=== PATIENT | male | born 1940 | race Asian ===

== ENCOUNTER 2022-12-06 16:08 | Outpatient (REF) | payer MEDICARE, SELFPAY ==
[2022-12-06 18:44] LABS: Folate 8.2 ng/mL (> or = 4.0); Vitamin B12 396 pg/mL (200-900)
== END 2022-12-06 16:09 | disposition home or self-care (01) ==
LOC: HO.CHCLDS 16:08
PROVIDERS: Visit Provider Internal Medicine
DX: D75.89 Other specified diseases of blood and blood-forming organs (principal)
CPT/HCPCS: 36415; 82607; 82746

== ENCOUNTER 2023-06-16 16:20 | Outpatient (REF) | payer MEDICARE, SELFPAY ==
[2023-06-16 17:29] LABS: Alanine Aminotransferase 14 U/L (0-40); Albumin Level 4.4 g/dL (3.5-5.0); Alkaline Phosphatase 78 U/L (39-117); Anion Gap 15 (12-20); Aspartate Amino Transferase 24 U/L (5-37); Bilirubin Total 0.3 mg/dL (0.0-1.0); Blood Urea Nitrogen 18 mg/dL (9-16); Calcium 10.3 mg/dL (8.4-10.2); Carbon Dioxide 27 mmol/L (22-29); Chloride 103 mmol/L (96-108); Estimated Glomerular Filt Rate > 60; Glucose Random 124 mg/dL (60-115); Potassium 4.1 mmol/L (3.3-5.1); Sodium 141 mmol/L (135-145); Total Protein 7.8 g/dL (6.5-8.0)
[2023-06-16 18:01] LABS: Creatinine Urine 126.98 mg/dL; Microalbum/Creatinine Ratio Ur 263.8 ug/mg cr (<30)
== END 2023-06-16 16:21 | disposition home or self-care (01) ==
LOC: HO.CHCLDS 16:20
PROVIDERS: Visit Provider Internal Medicine
DX: E11.9 Type 2 diabetes mellitus without complications (principal)
CPT/HCPCS: 36415; 80053; 82043; 82570

== ENCOUNTER 2024-07-20 08:42 | Outpatient (REF) | payer MEDICARE, SELFPAY ==
--- OUTSIDE RECORDS SUMMARY | 2024-07-20 08:57 | XMS_ITS | Encounter Summary ---
Author Organization [employer] Address [address] [place] [address] [address] [place] [address] Care Team Providers Care Deck Hand Name Role Phone Shadi Mcgovern MD Primary Care Provider Encounter Details Date Type Department Care Team ([facility] st Contact Info) Description 08/04/2022 Orders Only [facility] MED & PEDS [address] [place] [address] Shirley Richardson LPN Social History Tobacco Use Types Packs/Day Years Used Date Smoking Tobacco: Every Day Cigarettes Smokeless Tobacco: Never Alcohol Use Standard Drinks/Week Comments Yes 1 (1 standard drink = 0.6 oz pur e alcohol) Sex and Gender Information Value Date Recorded Sex Assigned at Male 12/14/2021 10:21 AM EDT Legal Sex Male 10:21 AM EDT Gender Identity Male 12/14/2021 10:21 AM EDT Sexual Orientation Straight 12/14/2021 10 :21 AM EDT documented as of this encounter Plan of Treatment Not on file documented as of this encounter Visit Diagnoses Not on filedocumented in this encounter Care Teams Deck Hand Relationship Specialty Start Date End Date Shadi Mcgovern MD [address] [place] [address] PCP - General Internal Medicine 02/14/18 documented as of this encounter
[2024-07-20 14:22] LABS: Estimated Average Glucose 143 mg/dL; Hemoglobin A1c % 6.6 % (<6.0)
[2024-07-20 14:51] LABS: TSH reflex Free T4 1.04 uIU/mL (0.32-4.0)
[2024-07-20 15:09] LABS: Creatinine Urine 62.24 mg/dL; Microalbum/Creatinine Ratio Ur 138.1 ug/mg cr (<30)
[2024-07-20 15:10] LABS: Anion Gap 9 (12-20)
[2024-07-20 15:14] LABS: Alanine Aminotransferase 16 U/L (0-40); Albumin Level 4.3 g/dL (3.5-5.0); Alkaline Phosphatase 78 U/L (39-117); Aspartate Amino Transferase 30 U/L (5-37); Bilirubin Total 0.5 mg/dL (0.0-1.0); Blood Urea Nitrogen 16 mg/dL (9-16); Calcium 9.7 mg/dL (8.4-10.2); Carbon Dioxide 30 mmol/L (22-29); Chloride 107 mmol/L (96-108); Cholesterol 116 mg/dL (<200); Estimated Glomerular Filt Rate > 60; Glucose Random 123 mg/dL (60-115); HDL Cholesterol 51 mg/dL (>40); LDL Cholesterol Calculated 50 mg/dL (<100); Potassium 4.3 mmol/L (3.3-5.1); Sodium 142 mmol/L (135-145); Total Protein 7.4 g/dL (6.5-8.0); Triglycerides 78 mg/dL (<150)
== END 2024-07-20 08:43 | disposition home or self-care (01) ==
LOC: HO.CHCLDS 08:42
PROVIDERS: Visit Provider Internal Medicine
DX: E11.9 Type 2 diabetes mellitus without complications (principal); E78.00 Pure hypercholesterolemia, unspecified
CPT/HCPCS: 36415; 80053; 80061; 82043; 82570; 83036; 84443

== ENCOUNTER 2024-11-06 11:21 | Outpatient (REF) | payer OTHER, SELFPAY ==
--- OUTSIDE RECORDS SUMMARY | 2024-11-06 10:45 | XMS_ITS | Encounter Summary ---
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 I have evelin moore 06/20/[address] you li ve. Do you have problems with any of the following? None of the above 06/20/2024 Food Insecurity Answer Date Recorded Within the past 12 months, y ou worried that your food would run out before you got money to buy more: Never True 06/20/2024 Within the past 12 months,th e food you bought just didn't last and you didn't have enough money to get more: Never True 08/2024 Transportation Answer Date Recorded In the past 12 months, has l ack of transportation kept you from medical appts, meetings, work or from getting things needed for daily living? No 06/20/2024 Utilities Answer Date Recorded In the past 12 months, has t he electric, gas, oil or water company threatened to shut off services in your home? No 06/20/2024 Depression Answer Date Recorded Patient Health Questionnaire-2 Score 0 06/20/2024 Internet Access Answer Date Recorded Internet Access Q1 Yes 06/20/2024 Internet Access Q2 Not on file 06/20/2024 Sex and Gender Information Value Date Recorded Sex Assigned at Male 12/14/2021 10:21 AM EDT Legal Sex Male 10:21 AM EDT Gender Identity Male 12/14/2021 10:21 AM EDT Sexual Orientation Straight 12/14/2021 10 :21 AM EDT documented as of this encounter Last Filed Vital Signs Vital Sign Reading Time Taken Comments Blood Pressure 112/67 11/06/2024 10:36 AM EDT Pulse 71 11/06/2024 10:36 AM EDT Temperature - - Respiratory Rate 20 11/06/2024 10:36 AM EDT Oxygen Saturation 98% 11/06/2024 10:36 AM EDT Inhaled Oxygen Concentration - - Weight 49 kg (108 lb) 11/06/2024 10:36 AM EDT Height 154.9 cm (5' 1 ) 11/06/2024 10:36 AM EDT Body Mass Index 20.41 11/06/2024 10:36 AM EDT documented in this encounter Progress Notes * Shadi Mcgovern MD - 11/06/2024 10:45 AM EDT SIMONA Goodwin Do is a 84 y.o. male who presents for No chief complaint on file.. HPI Mr. Katherine Goodwin Do Was admitted at [facility] on October 26, 2024 with shortness of breathof 3 days duration. As the shortness of breath was getting worse Decided to call her children and was transported by ambulance to the hospital. Chest x-ray: Diffuse prominent interstitial markings may reflect early atypical/viral pneumonia versus mild pulmonary edema. Started on on CPAP subsequently changed to high flow oxygen given the fact that patient did not tolerate the CPAP. Labs: Hemoglobin 11.6, MCV 94.6, platelet 149. Normal anion gap metabolic acidosis. Normal creatinine. Troponin 47 and 54. proBNP 9300. COVID, influenza, RSV negative. EKG: Normal sinus rhythm with frequent PVC, heart rate 93, QTc 437, possible septal infarct. Started on IV Lasix 20 mg, placed on BiPAP. Transthoracic echocardiogram: Left ventricular severely dilated in size. Left ventricular wall thickness was normal. There was severe hypokinesis of the left ventricle with regional variation. Left ventricular systolic function is 14.2% by biplane Kirby grade 2 diastolic dysfunction with high left atrial filling pressures. The leaflets appears moderately thickened and calcified. There was moderate aortic stenosis by aortic valve area. Right ventricular cavity was normal in size. Right ventricular systolic function was low normal. Discharge medication: Aspirin 81 mg once daily Lasix 20 mg once daily Nicotine patch 7 mg per 24 hours 1 patch daily Spironolactone 25 mg once daily Valsartan 40 mg once daily. Patient states that he is feeling better. Denies shortness of breath at rest and with his activities of daily living. He has decided to quit smoking. He has a scheduled follow-up appointment with his tree deadener at the beginning of November in about2 weeks. Problem List[1] Allergies[2] Medications Ordered Prior to Encounter[3] Review of Systems Constitutional: Negative for appetite change, chills, diaphoresis and fatigue. HENT: Negative for dental problem, drooling and ear discharge. Respiratory: Negative for cough, choking and shortness of breath. Cardiovascular: Negative for leg swelling. Gastrointestinal: Negative for anal bleeding and blood in stool. Musculoskeletal: Negative for back pain, gait problem and joint swelling. OBJECTIVE Vitals: 11/06/24 1036 BP: 112/67 BP Location: Left arm Patient Position: Sitting BP Cuff Size: Adult Pulse: 71 Resp: 20 SpO2: 98% Weight: 108 lb (49 kg) Height: 5' 1 (1.549 m) Physical Exam Constitutional: General: He is not in acute distress. Appearance: Normal appearance. He is not ill-appearing, toxic-appearing or diaphoretic. Cardiovascular: Rate and Rhythm: Normal rate. Heart sounds: No murmur heard. Pulmonary: Effort: Pulmonary effort is normal. No respiratory distress. Breath sounds: No stridor. No wheezing or rhonchi. Neurological: General: No focal deficit present. Mental Status: He is alert. Assessment/Plan Assessment/Plan Diagnoses and all orders for this visit: Acute combined systolic and diastolic congestive heart failure ([facility]/HCC) Comments: Stable Patient aware to check his weight daily. To contact the office if he gains more than 3 pounds in a day or more than 5 pounds in a week Cardiology evaluation scheduled Fluid restriction: 1.5 L of fluid a day Complete abstinence from alcohol use for now. Orders: - Basic Metabolic Panel; Future - Lasix 20 MG tablet; Take 1 tablet (20 mg) by mouth Once per day. - valsartan (Diovan) 40 MG tablet; Take 1 tablet (40 mg) by mouth Once per day. - aspirin 81 MG EC tablet; Take 1 tablet (81 mg) by mouth Once per day. - Aldactone 25 MG tablet; Take 1 tablet (25 mg) by mouth Once per day. Smoking addiction Comments: Nicotine patch prescribed. Orders: - nicotine (Nicoderm CQ) 7 MG/24HR patch; Place 1 patch on the skin 1 (one) time each day at the same time. Type 2 diabetes mellitus without complication, without long-term current use of insulin ([facility]) Comments: Stable. A1c is at goal No change. Orders: - POCT Glucose - POCT Hgb A1c [1] Patient Active Problem List Diagnosis Hypercholesterolemia Osteoarthritis Pulmonary emphysema ([facility]) Type 2 diabetes mellitus ([facility]) Smoking addiction [2] No Known Allergies [3] Current Outpatient Medications on File Prior to Visit Medication Sig Dispense Refill acetaminophen (Tylenol 8 Hour) 650 MG ER tablet TAKE 1 TABLET EVERY 8 HOURS NEEDED FOR PAIN 90 tablet 5 alendronate (Fosamax) 70 MG tablet TAKE 1 TABLET BY MOUTH ONCE A WEEK ON AN EMPTY STOMACH WITH A FULL GLASS OF WATER. REMAIN UPRIGHT FOR AT LEAST 30 MINUTES. 4 tablet 3 ammonium lactate (Amlactin) 12 % cream APPLY TO THE AFFECTED AREA ON SKIN two (2) times a day 140 g11 Blood Glucose Monitoring Suppl (Reflex [place] Lite) w/Device kit Use to test blood sugar 2 times daily 1 kit 0 cetirizine (ZyrTEC) 10 MG tablet TAKE 1 TABLET ONCE DAILY 30 tablet 11 chlorhexidine (Peridex) 0.12 % solution SWISH 1 capful (15MLS) FOR 30 SECONDS THEN SPIT OUT. USE two (2) times a day AFTER MEALS 473 mL 3 D3-1000 25 MCG (1000 UT) capsule TAKE 1 CAPSULE ONCE DAILY 30 capsule 11 famotidine (Pepcid) 20 MG tablet TAKE 1 TABLET ONCE DAILY AT BEDTIME 30 tablet 3 fluticasone (Flonase) 50 MCG/ACT nasal spray SPRAY 1 PUFF IN EACH NOSTRIL ONCE DAILY 16 g 5 FREESTYLE LITE test strip USE TO TEST FINGER STICK BLOOD SUGAR two (2) times a day 100 strip 11 metFORMIN (Glucophage) 500 MG tablet TAKE 1 TABLET two (2) times a day WITH BREAKFAST AND DINNER 60tablet 11 Multiple Vitamin (One-Daily Multi-Vitamin) tablet TAKE 1 TABLET ONCE DAILY 30 tablet 3 omega-3 (Fish Oil) 1000 MG capsule 1 cap 2 x day rosuvastatin (Crestor) 20 MG tablet TAKE 1 TABLET ONCE DAILY 30 tablet 11 True Comfort Safety Lancets misc USE TO TEST FINGER STICK BLOOD SUGAR two (2) times a day 100 each 11 [DISCONTINUED] Aldactone 25 MG tablet Take 1 tablet by mouth Once per day. [DISCONTINUED] aspirin 81 MG EC tablet Take 81 mg by mouth Once per day. [DISCONTINUED] glucose blood (FREESTYLE LITE) test strip USE TO TEST FINGER STICK BLOOD SUGAR two (2) times a day 60 strip 5 [DISCONTINUED] Lasix 20 MG tablet Take 1 tablet by mouth Once per day. [DISCONTINUED] nicotine (Nicoderm, Step 3) 7 MG/24HR patch Apply 1 patch topically Once per day. [DISCONTINUED] valsartan (Diovan) 40 MG tablet Take 1 tablet by mouth Once per day. No current facility-administered medications on file prior to visit. documented in this encounter Plan of Treatment Scheduled Orders Name Type Priority Associated Diagnoses Orde r Schedule Basic Metabolic Panel Lab Routine Acute combined systolic and diastolic congestive heart failure (CMS/HCC) Expected: 11/06/2024 (Approximate), Expires: 11/06/2025 CBC auto differential Lab Routine Acute combined systolic and diastolic congestive heart failure (CMS/HCC) Expected: 11/06/2024 (Approximate), Expires: 11/06/2025 documented as of this encounter Procedures Procedure Name Priority Date/Time Associated Diagnosis Comments POCT GLYCATED HEMOGLOBIN, TOTAL Routine 11/06/2024 11:07 AM EDT Type 2 diabetes mellitus without complication, without long-term current use of insulin ([facility]) POCT GLUCOSE Routine 11/06/2024 11:07 AM EDT Type 2 diabetes mellitus without complication, without long-term current use of insulin ([facility]) documented in this encounter Results * (ABNORMAL) POCT Hgb A1c (11/06/2024 11:07 AM EDT) Hemoglobin A1C 6.5(A) 4.0 - 5.7 % QC Media Lot # [id number] Lot# Expiration Date Blood 11/06/2024 11:0 7 AM EDT Shadi Mcgovern MD POINT OF CARE TEST ENTER/ED IT ORDERABLES Final Result * POCT Glucose (11/06/2024 11:07 AM EDT) Glucose Blood, POC 164 60 - 200 mg/dL QC Media Lot # [id number] Lot# Expiration Date Comment:random Blood Capillary blood specimen / Unknown 11/06/2024 11:07 AM EDT Shadi Mcgovern MD POINT OF CARE TEST ENTER/ED IT ORDERABLES Final Result documented in this encounter Visit Diagnoses Diagnosis Acute combined systolic and diastolic congestive heart failure ([facility]/HCC)- Primary Smoking addiction Type 2 diabetes mellitus without complication, without long-term current use of insulin ([facility]) documented in this encounter Additional Health Concerns Assessment Noted Time PHQ-9 Depression Total Score: 0 06/21/19 25 4:30 PM EDT documented as of this encounter Care Teams Ice Scraper Relationship Specialty Start Date End Date Shadi Mcgovern MD [address] [place] [id number] PCP - General Internal Medicine 02/14/18 documented as of this encounter
--- OUTSIDE RECORDS SUMMARY | 2024-11-06 14:13 | XMS_ITS | Encounter Summary ---
Author Organization [employer] Address [address] [place] [address] [address] [place] [address] Care Team Providers Care Associate Quality Engineer Name Role Phone Shadi Mcgovern MD Primary Care Provider Encounter Details Date Type Department Care Team ([facility] st Contact Info) Description 08/04/2022 Orders Only [facility] MED & PEDS [address] [place] [address] Shirley Richardson LPN Social History Tobacco Use [...] on filedocumented in this encounter Care Teams Associate Quality Engineer Relationship Specialty Start Date End Date Shadi Mcgovern MD [address] [place] [address] PCP - General Internal Medicine 02/14/18 documented as of this encounter
--- OUTSIDE RECORDS SUMMARY | 2024-11-06 14:13 | XMS_ITS | Encounter Summary ---
Author Organization [employer] Address [address] [facility] [address] [place] [address] Care Team Providers Care Aviation Warfare Systems Operator Name Role Phone Shadi Mcgovern MD Primary Care Provider [phone] Encounter Details Date Type Department Care Team (Late st Contact Info) Description 03/30/2022 Orders Only [facility] MEDICINE [address] [place] [address] Maria Esther Kahn LPN Social History Tobacco Use Types Packs/Day Years Used Date Smoking Tobacco: Never Assessed Sex and Gender Information Value Date Recorded Sex Assigned at Male 12/14/2021 10:21 AM EDT Legal Sex Male 10:21 AM EDT Gender Identity Male 12/14/2021 10:21 AM EDT Sexual Orientation Straight 12/14/2021 10 :21 AM EDT documented as of this encounter Plan of Treatment Not on file documented as of this encounter Visit Diagnoses Not on filedocumented in this encounter Care Teams Aviation Warfare Systems Operator Relationship Specialty Start Date End Date Shadi Mcgovern MD [address] [place] [address] PCP - General Internal Medicine 02/14/18 documented as of this encounter
--- OUTSIDE RECORDS SUMMARY | 2024-11-06 14:13 | XMS_ITS | Clinical Summary ---
Author Organization [employer] Address [address] [facility] 7t [place] [address] Care Team Providers Care Manager Review Name Role Phone Shadi Mcgovern MD Primary Care Provider [phone] Allergies No known active allergies Medications omega-3 (Fish Oil) 1000 MG capsule 1 cap 2 x day 12/26/19 19 Active Blood Glucose Monitoring Suppl (FreeStyle [place] Lite) w/Device kitIndications:Ty pe 2 diabetes mellitus without complication, without long-term current use of insulin ([facility]) Use to test blood sugar 2 times daily 1 kit 08/15/19 24 Active rosuvastatin (Crestor) 20 MG tablet TAKE 1 TABLET ONCE DAILY 30 tablet 10/31/19 24 Active D3-1000 25 MCG (1000 UT) capsule TAKE 1 CAPSULE ONCE DAILY 30 capsule 11/30/19 24 Active cetirizine (ZyrTEC) 10 MG tabletIndications :Seasonal allergies TAKE 1 TABLET ONCE DAILY 30 tablet 11/30/19 24 Active fluticasone (Flonase) 50 MCG/ACT nasal sprayIndications: Seasonal allergies SPRAY 1 PUFF IN EACH NOSTRIL ONCE DAILY 16 g 5 12/06/19 24 Active True Comfort Safety Lancets miscIndications:D iabetes mellitus due to underlying condition without complications ([facility]) USE TO TEST FINGER STICK BLOOD SUGAR two (2) times a day 100 each 11 03/30/19 25 Active ammonium lactate (Amlactin) 12 % creamIndications: Dry skin APPLY TO THE AFFECTED AREA ON SKIN two (2) times a day 140 g 11 05/09/19 25 Active FREESTYLE LITE test stripIndications: Dry skin USE TO TEST FINGER STICK BLOOD SUGAR two (2) times a day 100 strip 11 06/19/19 25 Active Multiple Vitamin (One-Daily Multi-Vitamin) tabletIndications :Vitamin deficiency TAKE 1 TABLET ONCE DAILY 30 tablet 3 06/20/19 25 Active famotidine (Pepcid) 20 MG tabletIndications :Gastroesophageal reflux disease without esophagitis TAKE 1 TABLET ONCE DAILY AT BEDTIME 30 tablet 3 06/20/19 25 Active acetaminophen (Tylenol 8 Hour) 650 MG ER tabletIndications :Primary osteoarthritis involving multiple joints TAKE 1 TABLET EVERY 8 HOURS NEEDED FOR PAIN 90 tablet 5 07/17/19 25 Active chlorhexidine (Peridex) 0.12 % solutionIndicatio ns:Routine general medical examination at a health care facility SWISH 1 capful (15MLS) FOR 30 SECONDS THEN SPIT OUT. USE two (2) times a day AFTER MEALS 473 mL 07/17/19 25 Active metFORMIN (Glucophage) 500 MG tabletIndications :Type 2 diabetes mellitus without complication, without long-term current use of insulin (CMS/HCC) TAKE 1 TABLET two (2) times a day WITH BREAKFAST AND DINNER 60 tablet 08/07/19 25 Active alendronate (Fosamax) 70 MG tabletIndications :Osteoporosis of multiple sites TAKE 1 TABLET BY MOUTH ONCE A WEEK ON AN EMPTY STOMACH WITH A FULL GLASS OF WATER. REMAIN UPRIGHT FOR AT LEAST 30 MINUTES. 4 tablet 3 10/18/19 25 Active nicotine (Nicoderm CQ) 7 MG/24HR patchIndications: Smoking addiction Place 1 patch on the skin 1 (one) time each day at the same time. 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 30 tablet 3 11/07/19 25 2024 Active glucose blood (FREESTYLE LITE) test stripIndications: Type 2 diabetes mellitus without complication, without long-term current use of insulin (CMS/HCC) USE TO TEST FINGER STICK BLOOD SUGAR two (2) times a day 60 strip 5 05/28/192024 Discontinued(D uplicate order (will not trigger notification to Pharmacy)) alendronate (Fosamax) 70 MG tabletIndications :Osteoporosis of multiple sites TAKE 1 TABLET BY MOUTH ONCE A WEEK ON AN EMPTY STOMACH WITH A FULL GLASS OF WATER. REMAIN UPRIGHT FOR AT LEAST 30 MINUTES. 4 tablet 3 06/19/192024 Discontinued aspirin 81 MG EC tablet Take 81 mg by mouth Once per day. 10/28/19 25 2024 Discontinued(R eorder (will not trigger notification to Pharmacy)) Lasix 20 MG tablet Take 1 tablet by mouth Once per day. 10/28/19 25 2024 Discontinued(R eorder (will not trigger notification to Pharmacy)) nicotine (Nicoderm, Step 3) 7 MG/24HR patch Apply 1 patch topically Once per day. 10/28/19 25 2024 Discontinued Aldactone 25 MG tablet Take 1 tablet by mouth Once per day. 10/28/19 25 2024 Discontinued(R eorder (will not trigger notification to Pharmacy)) valsartan (Diovan) 40 MG tablet Take 1 tablet by mouth Once per day. 10/28/19 25 2024 Discontinued(R eorder (will not trigger notification to Pharmacy)) nicotine (Nicoderm CQ) 21 MG/24HR patchIndications: Smoking addiction Place 1 patch on the skin 1 (one) time each day at the same time. 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) (Primary Dx); Smoking addiction; Type 2 diabetes mellitus without complication, without long-term current use of insulin (CMS/HCC) 11/06/2024 Travel 10/29/2024 Telephone [facility] [address] [place] [address] Shadi Mcgovern MD ER Follow-up 10/26/2024 Telephone [facility] [address] [place] [address] Shadi Mcgovern MD recall appt 10/16/2024 Refill [facility] [address] [place] [address] Shadi Mcgovern MD Osteoporosis of multiple sites 08/06/2024 Refill [facility] [address] [place], [place] [phone] Shadi Mcgovern MD Type 2 diabetes mellitus without complication, without long-term current use of insulin ([facility]) from Last 3 Months Immunizations Immunization Administration Dates Next Due Influenza High-dose Quadrivalent Preservative Fr ee 12/01/2021,12/13/2020 Influenza Quadrivalent Adjuvanted 12/25/2022 Influenza injectable quadriv alent IIV4 with preservative 11/10/2017,02/04/2017 Influenza injectable quadrivalent preservative f ree 12/29/2014 Influenza, High Dose Seasonal, Preservative Free 11/29/2023 Influenza, IIV3, injectable 11/28/2013 Pneumococcal Conjugate PCV 13 11/10/2017 Pneumococcal Conjugate PCV 20 06/16/2023 Tdap 06/16/2023 Zoster, live 11/28/2013 Social History Tobacco Use Types Packs/Day Years Used Date Smoking Tobacco: Every Day Cigarettes Smokeless Tobacco: Never Tobacco Cessation:Ready to Q uit: No; Counseling Given: Yes Alcohol Use Standard Drinks/Week Comments Yes 1 [...] Orientation Straight 12/14/2021 10 :21 AM EDT Last Filed Vital Signs Vital Sign Reading Time Taken Comments Blood Pressure 112/67 11/06/2024 10:36 AM EDT Pulse 71 11/06/2024 10:36 AM EDT Temperature 36.7 C (98 F) 06/20/2024 4:02 PM EDT Respiratory Rate 20 11/06/2024 10:36 AM EDT Oxygen Saturation 98% 11/06/2024 10:36 AM EDT Inhaled Oxygen Concentration - - Weight 49 kg (108 lb) 11/06/2024 10:36 AM EDT Height 154.9 cm (5' 1 ) 11/06/2024 10:36 AM EDT Body Mass Index 20.41 11/06/2024 10:36 AM EDT Plan of Treatment Health Maintenance Due Date Last Done Comments Zoster Vaccines (2 of 3) 01/23/2014 11/28/2013 RSV Patients and Patients Aged 60 years or older (1 - 1-dose 75+ series) 2016 Eye Exam 01/05/2024 01/04/2023 COVID-19 Vaccine ( season) 2024 12/20/2020, 04/11/2020, 03/20/2020 Influenza Vaccine (#1) 2024 , 12/25/2022, 12/01/2021, Additional history exists Diabetes: Hemoglobin A1C 05/06/2025 025, 07/20/2024, 06/20/2024, Additional history exists Alcohol/Substance Use Screening 06/20/2025 06/20/2024 Depression Screening 06/20/2025 06/20/2024, 06/21/19 25 Diabetes: Foot Exam 06/20/2025 06/20/2024, 12/06/2022, 12/06/2022, Additional history exists SDOH Screening 06/20/2025 06/20/2024 Tobacco Screening 06/20/2025 06/20/2024 Diabetes: Urine Protein Screening 07/20/2025 07/20/2024, 06/16/2023 Lipid Panel 07/20/2025 07/20/2024, 07/10/2020 DTaP/Tdap/Td Vaccines (2 - Td or Tdap) 06/15/2033 06/16/2023 Pneumococcal Vaccine: 50+ Years Completed 06/16/2023, 11/10/2017 HIB Vaccines Aged Out No longer eligi ble based on patient's age to complete this topic HPV Vaccines Aged Out No longer eligi ble based on patient's age to complete this topic Hepatitis A Vaccines Aged Out No long er eligible based on patient's age to complete this topic Hepatitis B Vaccines Aged Out No long er eligible based on patient's age to complete this topic IPV Vaccines Aged Out No longer eligi ble based on patient's age to complete this topic Meningococcal B Vaccine Aged Out No l onger eligible based on patient's age to complete this topic Meningococcal Vaccine Aged Out No rayray hutner eligible based on patient's age to complete this topic RSV under 20 months Aged Out No longe r eligible based on patient's age to complete this topic Rotavirus Vaccines Aged Out No longer eligible based on patient's age to complete this topic Procedures Procedure Name Priority Date/Time Associated Diagnosis Comments POCT GLYCATED HEMOGLOBIN, TOTAL Routine 11/06/2024 11:07 AM EDT Type 2 diabetes mellitus without complication, without long-term current use of insulin ([facility]) POCT GLUCOSE Routine 11/06/2024 11:07 AM EDT Type 2 diabetes mellitus without complication, without long-term current use of insulin ([facility]) ALBUMIN, RANDOM URINE W/CREATININE Routine 07/20/2024 8:43 AM EDT Type 2 diabetes mellitus without complication, without long-term current use of insulin ([facility]) LIPID PANEL, STANDARD Routine 07/20/2024 12:00 AM EDT Type 2 diabetes mellitus without complication, without long-term current use of insulin ([facility]) Hypercholesterolemi a from Last 3 Months or Most Recently Relevant to Health Maintenance Results * (ABNORMAL) POCT Hgb A1c (11/06/2024 [...] specimen / Unknown 11/06/2024 11:07 AM EDT us Shadi Mcgovern MD POINT OF CARE TEST ENTER/ED IT ORDERABLES Final Result * (ABNORMAL) Albumin, Random Urine W/Creatinine (07/20/2024 8:43 AM EDT) Creatinine, Urine 62.24 mg/dL [facility] Microalbumin Urine 86.0 mg/L H [facility] Microalbum Creatinine Ratio Ur 138.1(H) <30 ug/mg cr [facility] Comment:Albumin/Creatinine R atio Reference Ranges: Normal: < 30 ug/mg creatinine Microalbuminuria: 30 - 300 ug/mg creatinineClinical Albuminuria: > 300 ug/mg creatinine Urine (Urine, Random) 07/20/2024 8:43 AM EDT 07/20/2024 1:58 PM EDT us Shadi Mcgovern MD LAB URINE ORDERABLES Final Result [facility] [address] [place] [address] [phone] * Lipid Panel, Standard (07/20/2024 12:00 AM EDT) Triglycerides 78 <150 mg/dL [facility] Comment:Desirable Triglyceri de: less than 150 mg/dLBorderline High Triglyceride 150-199 mg/dLHigh Triglyceride: 200-499 mg/dLVery High Triglyceride: greater than or equal to 5OO mg/dL Cholesterol 116 <200 mg/dL [facility] Comment:Desirable Cholestero l: less than 200 mg/dLBorderline High Cholesterol: 200-239 mg/dLHigh Cholesterol: greater than 239 mg/dL LDL Cholesterol Calculated 50 <100 mg/dL [facility] Comment:Desirable LDL: less than 100 mg/dLNear Optimal/Above Optimal LDL: 110- 129 mg/dLBorderline High LDL: 130-159 mg/dLHigh LDL: 160-189 mg/dLVery High LDL: greater than or equal to 190 mg/dL HDL Cholesterol 51 >40 mg/dL [facility] Comment:Desirable HDL: great er than 40 mg/dL Note: This HDL assay may give artificially low results in patients with liver disease. Blood Venous blood specimen / Unknown 07/20/2024 07/20/2024 Shadi Mcgovern MD LAB BLOOD ORDERABLES Final Result [facility] [address] [place] [address] [phone] from Last 3 Months or Most Recently Relevant to Health Maintenance Insurance [facility] LONGTERM OPTIONS (O D-SNP) [place]I [place]ONILL[place] [id number] Care Teams Manager Review Relationship Specialty Start Date End Date Shadi Mcgovern MD [address] [place] [id number] PCP - General Internal Medicine 02/14/18
--- OUTSIDE RECORDS SUMMARY | 2024-11-06 14:13 | XMS_ITS | Encounter Summary ---
Author Organization [employer] Address [address] [facility] 7 [place] [address] Care Team Providers Care Supervising Airplane Pilot Name Role Phone Shadi Mcgovern MD Primary Care Provider Reason for Visit * Reason Onset Date Comments Appointment Request 03/22/2024 Encounter Details Date Type Department Care Team ([facility] st Contact Info) Description 03/22/2024 Telephone [facility] [address] [place] [address] Shadi Mcgovern MD [address] [place] [address] Appointment Request Social History Tobacco Use Types Packs/Day Years [...] AM EDT documented as of this encounter Miscellaneous Notes * Telephone Encounter - Kevin Hernandez - 03/22/2024 10:36 AM EST Tc from son requesting call back to reschedule parents appt from 04/05. Please contact Son at [phone]. Pt 2/2 documented in this encounter Plan of Treatment Not on file documented as of this encounter Visit Diagnoses Not on filedocumented in this encounter Care Teams Supervising Airplane Pilot Relationship Specialty Start Date End Date Shadi Mcgovern MD [address] [place] [id number] PCP - General Internal Medicine 02/14/18 documented as of this encounter
--- OUTSIDE RECORDS SUMMARY | 2024-11-06 14:13 | XMS_ITS | Encounter Summary ---
Author Organization [employer] Address [address] [place] [address] 7 [place] [address] Care Team Providers Care Cloth Seconds Sorter Name Role Phone Shadi Mcgovern MD Primary Care Provider Reason for Visit * Reason Comments Med Refill Encounter Details Date Type Department Care Team ([facility] st Contact Info) Description 08/04/2022 Refill [facility] [address] [place], [place] [phone] Toma Cordova MD [address] [place] [address] Gastroesophageal reflux disease without esophagitis Social History Tobacco Use Types Packs/Day Years [...] documented as of this encounter Visit Diagnoses Diagnosis Gastroesophageal reflux disease without esophagitis Esophageal reflux documented in this encounter Care Teams Cloth Seconds Sorter Relationship Specialty Start Date End Date Shadi Mcgovern MD [address] [place] [address] PCP - General Internal Medicine 02/14/18 documented as of this encounter
--- OUTSIDE RECORDS SUMMARY | 2024-11-06 14:13 | XMS_ITS | Encounter Summary ---
Author Organization [employer] Address [address] [place] [address] [address] [place] [address] Care Team Providers Care Dispatcher Relay Name Role Phone Shadi Mcgovern MD Primary Care Provider Reason for Visit * Reason Comments Med Refill Encounter Details Date Type Department Care Team ([facility] Contact Info) Description 01/23/2024 Refill [facility] [address] [place] [address] Shadi Mcgovern MD [address] [place] [address] Gastroesophageal reflux disease without esophagitis; Vitamin deficiency; Osteoporosis of multiple sites; Routine general medical examination at a health care facility Social History Tobacco Use Types Packs/Day Years [...] Gastroesophageal reflux disease without esophagitis Esophageal reflux Vitamin deficiency Unspecified vitamin deficiency Osteoporosis of multiple sites Routine general medical examination at a health care facility documented in this encounter Care Teams Dispatcher Relay Relationship Specialty Start Date End Date Shadi Mcgovern MD [address] [place] [address] PCP - General Internal Medicine 02/14/18 documented as of this encounter
--- OUTSIDE RECORDS SUMMARY | 2024-11-06 14:13 | XMS_ITS | Encounter Summary ---
Author Organization [employer] Address [address] [place] [address] 7 [place] [address] Care Team Providers Care Snowboarder Name Role Phone Shadi Mcgovern MD Primary Care Provider Reason for Visit * Reason Comments Med Refill Encounter Details Date Type Department Care Team ([facility] st Contact Info) Description 08/03/2023 Refill [facility] [address] [place], [place] [phone] Shadi Mcgovern MD [address] [place] [address] Osteoporosis of multiple sites; Vitamin deficiency; Gastroesophageal reflux disease without esophagitis Social History [...] as of this encounter Visit Diagnoses Diagnosis Osteoporosis of multiple sites Vitamin deficiency Unspecified vitamin deficiency Gastroesophageal reflux disease without esophagitis Esophageal reflux documented in this encounter Care Teams Snowboarder Relationship Specialty Start Date End Date Shadi Mcgovern MD [address] [place] [address] PCP - General Internal Medicine 02/14/18 documented as of this encounter
--- OUTSIDE RECORDS SUMMARY | 2024-11-06 14:13 | XMS_ITS | Encounter Summary ---
Author Organization [employer] Address [address] [place] [address] 7 [place] [address] Care Team Providers Care Die Cutter Apprentice Name Role Phone Shadi Mcgovern MD Primary Care Provider Reason for Visit * Reason Comments Med Refill Encounter Details Date Type Department Care Team ([facility] st Contact Info) Description 03/09/2022 Refill [facility] [address] [place], [place] [phone] NameHarry MD [address] [place] [address] Primary osteoarthritis involving multiple joints (Primary Dx); Type 2 diabetes mellitus without complication, without long-term current use of insulin (CMS/HCC); Routine general medical examination at a health [...] as of this encounter Visit Diagnoses Diagnosis Primary osteoarthritis involving multiple joints- Primary Type 2 diabetes mellitus without complication, without long-term current use of insulin (CMS/HCC) Routine general medical examination at a health care facility documented in this encounter Care Teams Die Cutter Apprentice Relationship Specialty Start Date End Date Shadi Mcgovern MD [address] [place], [place] [phone] PCP - General Internal Medicine 02/14/18 documented as of this encounter
--- OUTSIDE RECORDS SUMMARY | 2024-11-06 14:13 | XMS_ITS | Encounter Summary ---
Author Organization [employer] Address [address] [facility] 7t [place] [address] Care Team Providers Care Underwriting Support Manager Name Role Phone Shadi Mcgovern MD Primary Care Provider [phone] Encounter Details Date Type Department Care Team (Latest Contact Info) Description 11/06/2024 Travel Social History Tobacco Use Types Packs/Day Years [...] is your housing situation today? I have evelinuyen moore 06/20/[address] you [...] Diagnoses Not on filedocumented in this encounter Additional Health Concerns Assessment Noted Time PHQ-9 Depression Total Score: 0 06/21/19 25 4:30 PM EDT documented as of this encounter Care Teams Underwriting Support Manager Relationship Specialty Start Date End Date Shadi Mcgovern MD [address] [place] [address] PCP - General Internal Medicine 02/14/18 documented as of this encounter
[2024-11-06 14:53] LABS: Anion Gap 12 (12-20); Blood Urea Nitrogen 19 mg/dL (9-16); Calcium 9.9 mg/dL (8.4-10.2); Carbon Dioxide 30 mmol/L (22-29); Chloride 103 mmol/L (96-108); Estimated Glomerular Filt Rate > 60; Potassium 4.8 mmol/L (3.3-5.1); Sodium 140 mmol/L (135-145)
== END 2024-11-06 11:22 | disposition home or self-care (01) ==
LOC: HO.CHCLDS 11:21
PROVIDERS: Visit Provider Internal Medicine
DX: I50.41 Acute combined systolic (congestive) and diastolic (congestive) heart failure (principal)
CPT/HCPCS: 36415; 80048